=== PATIENT | female | born 1955 | race Two or more races ===

== ENCOUNTER → 2024-07-05 | Outpatient (CLI) | payer MEDICAID ==
[~2024-07-05] MED LIST: AMIT-400 PO; BUPR-413 PO; DULO30CA2 PO; ERYT-160 PO; GABA-1250 PO; LIS10T PO; LORA-483 PO; OMEP20CA74 PO; PROP80CA40 PO; SIMV10TA20 PO
[2024-07-05 06:43] LABS: Urine Bacteria None Seen /hpf (None Seen)
[2024-07-05 07:00] LABS: Urine Blood Negative /uL (Negative); Urine Clarity Clear (Clear); Urine Color Yellow (Yellow); Urine Protein, UAD Negative (Negative); Urine Specific Gravity 1.026 (1.001-1.035); Urine Squamous Epithelial Cell FEW /hpf (<5); Urine Urobilinogen Normal (Negative); Urine WBC 25 /HPF (0-5); Urine WBC Clumps PRESENT /hpf (None Seen); Urine pH 5.5 (5.0-9.0)
[2024-07-05 07:15] LABS: Basophils # (auto) 0 10 ^3/uL (0-0.2); Basophils % (auto) 0.7 % (0.0-2.0); Eosinophils # (auto) 0.4 10 ^3/uL (0-0.8); Eosinophils % (auto) 6.3 % (0.0-7.0); Hematocrit 37.8 % (36.0-46.0); Hemoglobin 12.7 g/dL (12.2-16.2); Lymphocytes # (auto) 2.5 10 ^3/uL (0.4-5.4); Lymphocytes % (auto) 45.8 % (10.0-50.0); Mean Corpuscular Hemoglobin 28.3 pg (28.0-32.0); Mean Corpuscular Hgb Conc. 33.5 g/dL (32.0-36.0); Mean Corpuscular Volume 84.5 fL (80.0-100.0); Monocytes # (auto) 0.3 10 ^3/uL (0-1.3); Monocytes % (auto) 5.8 % (0.0-12.0); Neutrophils # (auto) 2.3 10 ^3/uL (1.6-8.6); Neutrophils % (auto) 41.4 % (37.0-80.0); Platelet Count (auto) 254 10^3/uL (140-450); Red Blood Cells 4.48 10^6/uL (4.0-5.20); Red Cell Distribution Width 14.6 % (11.8-14.3); White Blood Cell 5.6 10^3/uL (4.4-10.8)
[2024-07-05 07:33] LABS: Alanine Aminotransferase 16 U/L (7-40); Albumin 4.4 g/dL (3.2-4.8); Alkaline Phosphatase 113 U/L (46-116); Anion Gap 8 (5-15); Aspartate Aminotransferase 15 U/L (13-40); Calcium 9.8 mg/dL (8.7-10.4); Carbon Dioxide 26 mmol/L (20-31); Chloride 104 mmol/L (98-107); Potassium 4.8 mmol/L (3.5-5.1); Sodium 138 mmol/L (136-145); Total Protein 7.1 g/dL (5.7-8.2); Uric Acid 4.9 mg/dL (3.1-7.8)
[2024-07-05 07:37] LABS: Bilirubin, Total 0.2 mg/dL (0.2-1.0); Blood Urea Nitrogen 25 mg/dL (9-23); Glucose 167 mg/dL (74-106)
[2024-07-05 08:04] LABS: Cholesterol 171 mg/dL (< 200)
[2024-07-05 08:05] LABS: HDL Cholesterol 50 mg/dL (40-59)
[2024-07-05 08:07] LABS: LDL Cholesterol 102 mg/dL (< 100); Triglycerides 157 mg/dL (< 150)
== END | disposition home or self-care (01) ==
LOC: LAB 06:26
PROVIDERS: ATTEND Family Medicine
DX: E11.65 Type 2 diabetes mellitus with hyperglycemia (principal); Z12.11 Encounter for screening for malignant neoplasm of colon; M25.50 Pain in unspecified joint; E03.9 Hypothyroidism, unspecified; E78.5 Hyperlipidemia, unspecified; G20.C Parkinsonism, unspecified; Z79.899 Other long term (current) drug therapy
CPT/HCPCS: 36415; 80053; 80061; 81001; 82043; 82306; 83036; 84443; 84550; 85025

== ENCOUNTER → 2024-10-29 | Outpatient (CLI) | payer MEDICAID ==
[2024-10-29 11:52] LABS: Alanine Aminotransferase 13 U/L (7-40); Albumin 5.0 g/dL (3.2-4.8); Alkaline Phosphatase 110 U/L (46-116); Anion Gap 9 (5-15); BUN/Creatinine Ratio 20.6 (10.0-20.0); Blood Urea Nitrogen 21 mg/dL (9-23); Calcium 10.1 mg/dL (8.7-10.4); Carbon Dioxide 27 mmol/L (20-31); Chloride 101 mmol/L (98-107); Cholesterol 159 mg/dL (< 200); Glucose 186 mg/dL (74-106); Potassium 4.9 mmol/L (3.5-5.1); Sodium 137 mmol/L (136-145); Total Protein 7.7 g/dL (5.7-8.2); Triglycerides 86 mg/dL (< 150)
[2024-10-29 11:53] LABS: Bilirubin, Total 0.3 mg/dL (0.2-1.0); HDL Cholesterol 63 mg/dL (40-59)
[2024-10-29 12:29] LABS: Microalb/Creat Ratio, Urine 4.00
== END | disposition home or self-care (01) ==
LOC: LAB 11:08
PROVIDERS: ATTEND Family Medicine
DX: I12.9 Hypertensive chronic kidney disease with stage 1 through stage 4 chronic kidney disease, or unspecified chronic kidney disease (principal); E11.22 Type 2 diabetes mellitus with diabetic chronic kidney disease; E78.2 Mixed hyperlipidemia; E03.9 Hypothyroidism, unspecified; E11.65 Type 2 diabetes mellitus with hyperglycemia; N18.9 Chronic kidney disease, unspecified; Z79.4 Long term (current) use of insulin
CPT/HCPCS: 36415; 80053; 80061; 82043; 82570; 83036; 84443

== ENCOUNTER 2024-12-29 01:31 | Inpatient (IN) | payer OTHER, MEDICAID ==
[~2024-12-29] VITALS: Ht 167.6 cm; Wt 70.5 kg
--- NOTE | 2024-12-29 02:17 | ED.PDOC ---
Altered Mental Status HPI Comments 69-year-old female who came to ER via EMS for altered level of consciousness. Patient transferred from here from [facility], apparently patient was seen him unresponsive by family members at home, so he was brought to [facility]. Patient is on hospice but on full code. Recently had antibiotics for an ear infection. Multiple diagnostic this were done at [facility], and was sent here for further evaluation and management Chief Complaint: ALOC Time Seen by MD: 02:16 Reviewed Notes: Veneer Stock Layer Notes Allergies: Coded Allergies: Amoxicillin (Verified Allergy, Unknown, 12/29/24) Ciprofloxacin (Verified Allergy, Unknown, 12/29/24) Penicillins (Verified Allergy, Unknown, 12/29/24) Home Meds Reported Medications Simvastatin (Simvastatin) 10 Mg Tab, 1 TAB PO QPM, #30 TAB 5 Refills 06/22/15 Loratadine (CLARITIN TABLET) 10 Mg Tb, 10 MG PO DAILY 06/22/15 Bupropion Hcl (WELLBUTRIN TABLET) 100 Mg Tb, 100 MG PO DAILY 06/22/15 Propranolol Hcl (Inderal La) 80 Mg Cap, 80 MG PO DAILY, CAP 06/22/15 Omeprazole (PRILOSEC) 20 Mg Cap, 20 MG PO DAILY, CAP 06/22/15 Lisinopril (ZESTRIL TABLET) 10 Mg Tb, 10 MG PO DAILY 06/22/15 Amitriptyline Hcl (ELAVIL) 10 Mg Tb, 75 MG PO BID 06/22/15 Erythromycin (ERYTHROMYCIN BASE) 250 Mg Tb, 500 MG PO TID 06/22/15 Duloxetine Hcl (CYMBALTA CAPSULE) 30 Mg Cp, 60 MG PO DAILY, CP 06/22/15 Gabapentin (Gabapentin) 300 Mg Cap, 300 MG PO TID for 30 Days, MG 06/22/15 Information Source: Emergency Med Personnel Mode of Arrival: EMS Severity: Unable to Care for Self, Unresponsive Timing: Hours Duration: Intermittent Quality: Decreased Alertness, Change in Behavior, Confusion History of: Diabetes Past Medical History PAST MEDICAL HISTORY: Arthritis, DM, High Lipids, HTN, UTI'S Surgical History: Pt Confused FAMILY AND CONSUMER SCIENCES PROFESSOR History: Pt Confused Family History Family History: Pt Confused Social History Smoker: Pt Confused Alcohol: Pt Confused Drugs: Pt Confused Lives In: Home Unable to Obtain due to: Altered Mental Status Physical Exam General Appearance: No Apparent Distress, Normal HEENT: Normal ENT Inspection, Pharynx Normal, TMs Normal Neck: Full Range of Motion, Non-Tender, Normal, Normal Inspection Respiratory: Chest Non-Tender, Lungs Clear, No Accessory Muscle Use, No Respiratory Distress, Normal Breath Sounds Cardiovascular: No Edema, No JVD, No Murmur, No Gallop, Normal Peripheral Pulses, Regular Rate/Rhythm Breast Exam: Deferred Gastrointestinal: No Organomegaly, Non Tender, No Pulsatile Mass, Normal Bowel Sounds, Soft Genitalia: Deferred Pelvic: Deferred Rectal: Deferred Extremities: No calf tenderness, Normal capillary refill, Normal inspection, Normal range of motion, Non-tender, No pedal edema Musculoskeletal : Apperance: Normal Neurologic: Alert, hydrodynamics teacher II-XII nml as Tested, No Motor Deficits, Normal Affect, Normal Mood, No Sensory Deficits Cerebellar Function: Normal Reflexes: Normal Skin: Dry, Normal Color, Warm Lymphatic: No Adenopathy Was a procedure done? Was a procedure done?: No Differential Diagnosis (ALOC) Differential Diagnosis: DKA, Encephalopathy, Sepsis, Seizure, CVA, Drug Overdose X-Ray, Labs, Meds, VS Vital Signs Date Time Temp Pulse Resp B/P (MAP) Pulse Ox O2 Delivery O2 Flow Rate FiO2 12/29/24 02:56 97.8 67 12 109/53 (71) 95 97.8 12/29/24 01:31 98.6 68 12 119/66 95 98.6 Lab Test 12/29/24 03:55 12/29/24 02:44 Range/Units Troponin I High Sensitivity Pending < 3 L </=34 ng/L White Blood Count 9.2 4.4-10.8 10^3/uL Red Blood Count 4.29 4.0-5.20 10^6/uL Hemoglobin 12.0 L 12.2-16.2 g/dL Hematocrit 37.4 36.0-46.0 % Mean Corpuscular Volume 87.1 80.0-100.0 fL Mean Corpuscular Hemoglobin 28.0 28.0-32.0 pg Mean Corpuscular Hemoglobin Concent 32.1 32.0-36.0 g/dL Red Cell Distribution Width 14.1 11.8-14.3 % Platelet Count 199 140-450 10^3/uL Mean Platelet Volume 7.8 6.9-10.8 fL Neutrophils (%) (Auto) 59.6 37.0-80.0 % Lymphocytes (%) (Auto) 31.8 10.0-50.0 % Monocytes (%) (Auto) 5.5 0.0-12.0 % Eosinophils (%) (Auto) 2.5 0.0-7.0 % Basophils (%) (Auto) 0.6 0.0-2.0 % Neutrophils # (Auto) 5.5 1.6-8.6 10 ^3/uL Lymphocytes # (Auto) 2.9 0.4-5.4 10 ^3/uL Monocytes # (Auto) 0.5 0-1.3 10 ^3/uL Eosinophils # (Auto) 0.2 0-0.8 10 ^3/uL Basophils # (Auto) 0.1 0-0.2 10 ^3/uL Nucleated Red Blood Cells 0.0 % Prothrombin Time 10.5 9.3-11.8 sec Prothrombin Time INR 0.99 0.9-1.15 Activated Partial Thromboplast Time 22.2 L 24.5-34.5 SEC Sodium Level 137 136-145 mmol/L Potassium Level 4.6 3.5-5.1 mmol/L Chloride Level 105 98-107 mmol/L Carbon Dioxide Level 22 20-31 mmol/L Anion Gap 10 5-15 Blood Urea Nitrogen 19 9-23 mg/dL Creatinine 1.07 H 0.550-1.02 mg/dL Glomerular Filtration Rate Calc 56 >90 mL/min BUN/Creatinine Ratio 17.8 10.0-20.0 Serum Glucose 163 H 74-106 mg/dL Lactic Acid Level 1.4 0.4-2.0 mmol/L Calcium Level 8.8 8.7-10.4 mg/dL Magnesium Level 2.1 1.6-2.6 mg/dL Total Bilirubin 0.4 0.2-1.0 mg/dL Aspartate Amino Transferase (AST) 29 13-40 U/L Alanine Aminotransferase (ALT) 20 7-40 U/L Alkaline Phosphatase 115 46-116 U/L B-Type Natriuretic Peptide 4.10 0-100 pg/mL Total Protein 6.9 5.7-8.2 g/dL Albumin 4.0 3.2-4.8 g/dL Current Medications Medications (Trade) Dose Ordered Sig/Robbin Route Start Time Stop Time Status Last Admin Sodium Chloride 1,000 ml @ 1,000 mls/hr Q1H ONCE IVB 12/29/24 02:00 12/29/24 02:59 DC 12/29/24 03:28 Time of 1ST Reevaluation: 01:59 Reevaluation 1ST: Unchanged Patient Education/Counseling: Other (Altered and confused) Family Education/Counseling: No Family Present SEPSIS Sepsis Screen Physician Orders Troponin-I Hs (12/29/24 03:00) Urinalysis (12/29/24 01:54) Blood Culture (12/29/24 01:54) Electrocardigram (12/29/24 01:54) Troponin-I Hs (12/29/24 04:54) Type And Screen (12/29/24 01:54) Pheresis Platelets (12/29/24 01:58) Zosyn Extended Infusion (12/29/24 04:15) Vital Signs Date Time Temp Pulse Resp B/P (MAP) Pulse Ox O2 Delivery O2 Flow Rate FiO2 12/29/24 02:56 97.8 67 12 109/53 (71) 95 97.8 12/29/24 01:31 98.6 68 12 119/66 95 98.6 Laboratory Tests Test 12/29/24 02:44 Lactic Acid Level 1.4 mmol/L (0.4-2.0) White Blood Count 9.2 10^3/uL (4.4-10.8) Medications Medications Dose Ordered Sig/Robbin Route Start Time Stop Time Status Last Admin Dose Admin Sodium Chloride 1,000 ml @ 1,000 mls/hr Q1H ONCE IVB 12/29/24 02:00 12/29/24 02:59 DC 12/29/24 03:28 Departure 1 Departure Time of Disposition: 04:13 Impression: Primary Impression: Altered mental status Additional Impression: Metabolic encephalopathy Disposition: ADMITTED INPATIENT Admit to: Med Surg Condition: Guarded Comments 69-year-old female transferred from [facility] with altered mental status for the last day. A CT of the head was performed at [facility] and showed no acute abnormality. A chest x-ray was performed at [facility] and showed some prominence of the central pulmonary vasculature and some linear perihilar opacities that may represent atelectasis or scarring. Lab results reviewed. Patient will need admission for metabolic encephalopathy and supportive care and further workup. Critical Care Note Critical Care Time?: Yes (35 min-critical care time only) Critical care comment: Total critical care time: Approximately 36 minutes Due to a high probability of clinically significant, life threatening deterioration, the patient required my highest level of preparedness to intervene emergently and I personally spent this critical care time directly and personally managing the patient. This critical care time included obtaining a history; examining the patient; pulse oximetry; ordering and review of studies; arranging urgent treatment with development of a management plan; evaluation of patient's response to treatment; frequent reassessment; and, discussions with other providers. This critical care time was performed to assess and manage the high probability of imminent, life-threatening deterioration that could result in multi-organ failure. It was exclusive of separately billable procedures and treating other patients. Stability Stability form required: No Heart Score Heart Score: Heart Score Response (Comments) Value History N/A 0 EKG N/A 0 Age N/A 0 Risk Factors N/A 0 Troponin N/A 0 Total 0 I personally scribed for ERIC ALEJANDRE MD ([email or web address]) on 12/29/24 at 02:17. Electronically submitted by Cleve Clements ([email or web address]). ERIC ALEJANDRE MD Dec 29, 2024 02:17
[2024-12-29 03:13] LABS: Hematocrit 37.4 % (36.0-46.0); Hemoglobin 12.0 g/dL (12.2-16.2); Mean Corpuscular Hemoglobin 28.0 pg (28.0-32.0); Mean Corpuscular Volume 87.1 fL (80.0-100.0); Nucleated Red Blood Cells % 0.0 %
[2024-12-29 03:27] LABS: INR 0.99 (0.9-1.15); Partial Thromboplastin Time 22.2 SEC (24.5-34.5); Prothrombin Time 10.5 sec (9.3-11.8)
[2024-12-29] MEDS: SODIUM CHLORIDE 0.9% 1,000 ML IVB ONE (03:28)
[2024-12-29 03:36] LABS: Alanine Aminotransferase 20 U/L (7-40); Albumin 4.0 g/dL (3.2-4.8); Alkaline Phosphatase 115 U/L (46-116); Anion Gap 10 (5-15); BUN/Creatinine Ratio 17.8 (10.0-20.0); Blood Urea Nitrogen 19 mg/dL (9-23); Calcium 8.8 mg/dL (8.7-10.4); Carbon Dioxide 22 mmol/L (20-31); Chloride 105 mmol/L (98-107); Glucose 163 mg/dL (74-106); Magnesium 2.1 mg/dL (1.6-2.6); Potassium 4.6 mmol/L (3.5-5.1); Sodium 137 mmol/L (136-145); Total Protein 6.9 g/dL (5.7-8.2)
[2024-12-29 03:37] LABS: Bilirubin, Total 0.4 mg/dL (0.2-1.0)
[2024-12-29] MEDS: PIPERACILLIN-TAZOB 3.375GM 100 ML IV ONE (04:28)
[2024-12-29] MEDS ORDERED: MORPHINE SULFATE INJ 2 MG/ml SYRG IV PRN (04:30)
[2024-12-29] MEDS ORDERED: ONDANSETRON HCL 4 MG/2 ML VIAL IV PRN (04:30)
[2024-12-29] MEDS ORDERED: NITROGLYCERIN 0.4 MG SL TAB SL PRN (04:30)
[2024-12-29] MEDS: SODIUM CHLORIDE 0.9% 1,000 ML IV SCH (04:30)
[2024-12-29] MEDS ORDERED: ACETAMINOPHEN 325 MG TAB PO PRN (04:30)
[2024-12-29] MEDS ORDERED: DOCUSATE SOD 100 MG CAP PO PRN (04:30)
--- NOTE | 2024-12-29 04:32 | DVHHP2 ---
History of Present Illness Reason for Visit: Metabolic encephalopathy History of Present Illness The patient is a 69-year-old female with past medical history of diabetes mellitus, arthritis, hyperlipidemia, hypertension, and UTIs who presented to [facility] ED for evaluation of altered level of consciousness. As reported, patient was transferred from [facility] for upper level of care. Patient was noted by family member unresponsive and EMS were called. Patient is on hospice but on full code. Patient was seen and evaluated in the ED with respiratory distress, laboratory data shows WBC 9.2, platelets 199, sodium 137, potassium 4.6, BUN 19, creatinine 1.07, GFR 56, glucose 163, calcium 8.8, troponin three, BNP 4.10, blood pressure 109/53, heart rate 67, temperature 97.8 F, O2 saturation 95% on oxygen. Chest x-ray showed normal heart size appearance, lungs are clear without focal airspace opacity, effusion, or pneumothorax. Please see medication orders section in the computer. On my assessment, patient denied chest pain, no headache, dizziness, diaphoresis, currently on oxygen, no diarrhea, nausea, vomiting, fever, no chills. Patient was admitted for further evaluation and medical management. Past Medical History Arthritis, DM, High Lipids, HTN, UTI'S Past Surgical History Denies all surgeries Family History Reviewed, noncontributory to the management of this case. Past Social History The patient lives at home, denies smoking, alcohol or illicit drugs abuse. Review of Systems Constitutional: Yes: Weakness; No: Fever, Chills, Sweats, Malaise, Other Eyes: No: Pain, Vision change, Conjunctivae inflammation, Eyelid inflammation, Other, Redness ENT: No: Ear pain, Ear discharge, Nose pain, Nose discharge, Nose congestion, Mouth pain, Mouth swelling, Throat pain, Throat swelling, Other Respiratory: Shortness of breath; No: Cough, Dry, SOB with excertion, Wheezing, Hemoptysis, Pleuritic Pain, Sputum, Wheezing, Other Cardiovascular: No: Chest Pain, Palpitations, Orthopnea, Paroxysmal Noc. Dyspnea, Edema, Lt Headedness, Other Gastrointestinal: No: Nausea, Vomiting, Abdominal Pain, Diarrhea, Constipation, Melena, Hematochezia, Other Genitourinary: No Dysuria, No Frequency, No Incontinence, No Hematuria, No Retention, No Other Musculoskeletal: No: other, neck pain, shoulder pain, arm pain, back pain, hand pain, leg pain, foot pain Skin: No: Rash, Lesions, Jaundice, Bruising, Other Neurological: Confusion, Other (Altered level of consciousness); No: Weakness, Numbness, Incoordination, Change in speech, Seizures Allergies: Coded Allergies: Amoxicillin (Verified Allergy, Unknown, 12/29/24) Ciprofloxacin (Verified Allergy, Unknown, 12/29/24) Penicillins (Verified Allergy, Unknown, 12/29/24) Exam Vital Signs Vital Signs Date Time Temp Pulse Resp B/P (MAP) Pulse Ox O2 Delivery O2 Flow Rate FiO2 12/29/24 02:56 97.8 67 12 109/53 (71) 95 97.8 12/29/24 02:56 Nasal Cannula* 2 28 General Appearance: Alert, Cooperative, No acute distress, Other (Oriented x2) HEENT: Atraumatic, PERRLA, EOMI, Mucous membr. moist/pink Respiratory: Normal air movement, Other (Currently on oxygen) Cardiovascular: Regular rate, Normal S1, Normal S2, No murmurs Abdominal: Normal bowel sounds, Soft, No tenderness, No hepatospenomegaly, No masses Extremities: No clubbing, No cyanosis, No edema, Normal pulses, No tenderness/swelling Skin: No rashes, No breakdown, No significant lesion Neuro: Normal speech, Normal tone, Sensation intact, Cranial nerves 3-12 NL, Reflexes 2+, Other (Generalized weakness) Psych/Mental Status: Mental status NL, Mood NL Labs/Xrays Labs Test 12/29/24 03:55 12/29/24 02:44 Range/Units White Blood Count 9.2 4.4-10.8 10^3/uL Red Blood Count 4.29 4.0-5.20 10^6/uL Hemoglobin 12.0 L 12.2-16.2 g/dL Hematocrit 37.4 36.0-46.0 % Mean Corpuscular Volume 87.1 80.0-100.0 fL Mean Corpuscular Hemoglobin 28.0 28.0-32.0 pg Mean Corpuscular Hemoglobin Concent 32.1 32.0-36.0 g/dL Red Cell Distribution Width 14.1 11.8-14.3 % Platelet Count 199 140-450 10^3/uL Mean Platelet Volume 7.8 6.9-10.8 fL Neutrophils (%) (Auto) 59.6 37.0-80.0 % Lymphocytes (%) (Auto) 31.8 10.0-50.0 % Monocytes (%) (Auto) 5.5 0.0-12.0 % Eosinophils (%) (Auto) 2.5 0.0-7.0 % Basophils (%) (Auto) 0.6 0.0-2.0 % Neutrophils # (Auto) 5.5 1.6-8.6 10 ^3/uL Lymphocytes # (Auto) 2.9 0.4-5.4 10 ^3/uL Monocytes # (Auto) 0.5 0-1.3 10 ^3/uL Eosinophils # (Auto) 0.2 0-0.8 10 ^3/uL Basophils # (Auto) 0.1 0-0.2 10 ^3/uL Nucleated Red Blood Cells 0.0 % Prothrombin Time 10.5 9.3-11.8 sec Prothrombin Time INR 0.99 0.9-1.15 Activated Partial Thromboplast Time 22.2 L 24.5-34.5 SEC Sodium Level 137 136-145 mmol/L Potassium Level 4.6 3.5-5.1 mmol/L Chloride Level 105 98-107 mmol/L Carbon Dioxide Level 22 20-31 mmol/L Anion Gap 10 5-15 Blood Urea Nitrogen 19 9-23 mg/dL Creatinine 1.07 H 0.550-1.02 mg/dL Glomerular Filtration Rate Calc 56 >90 mL/min BUN/Creatinine Ratio 17.8 10.0-20.0 Serum Glucose 163 H 74-106 mg/dL Lactic Acid Level 1.4 0.4-2.0 mmol/L Calcium Level 8.8 8.7-10.4 mg/dL Magnesium Level 2.1 1.6-2.6 mg/dL Total Bilirubin 0.4 0.2-1.0 mg/dL Aspartate Amino Transferase (AST) 29 13-40 U/L Alanine Aminotransferase (ALT) 20 7-40 U/L Alkaline Phosphatase 115 46-116 U/L B-Type Natriuretic Peptide 4.10 0-100 pg/mL Total Protein 6.9 5.7-8.2 g/dL Albumin 4.0 3.2-4.8 g/dL PATIENT: URBAN COLINDRESACCT: [id number] UNIT: [id number] : 1955 LOC: OVERFLOW ROOM / BED: [address] [place] [address] / A AGE / SEX: 69 / F ADM STATUS: ADM IN SERVICE 0424 ORDERING PHYSICIAN: ALISHA CARDOZA DNP PROCEDURE(s): CXRP - CHEST PORTABLE REASON: Shortness of breaths ORDER NUMBER(s): [id number], ACCESSION NUMBER(s): [id number] CHEST RADIOGRAPH Indication: Shortness of breaths Technique: Single frontal view of the chest was obtained Comparison: None IMPRESSION: Heart appears normal in size. The lungs appear clear without focal airspace opacity, effusion, or pneumothorax SEPSIS Sepsis Screen Date sepsis recognized/suspect: Dec 29, 2024 Time Sepsis recognized/suspect: 255 Recent Procedure: No On Antibiotic Therapy: No Respiratory Rate >20: No Heart Rate >90: No Temp<36 C (96.8 F) or >38.3 C: No SBP <90 or MAP <65 mmHG: No New Acute Mental Status Change: No Is the patient on CPAP, BIPAP,: No Physician Orders Troponin-I Hs (12/29/24 03:00) Urinalysis (12/29/24 01:54) Blood Culture (12/29/24 01:54) Electrocardigram (12/29/24 01:54) Troponin-I Hs (12/29/24 04:54) Type And Screen (12/29/24 01:54) Piperacillin-Tazob 3.375gm (Zosyn 3.375g (12/29/24 04:15) Duloxetine Hcl Capsule (Cymbalta Capsule (12/29/24 10:00) Gabapentin Capsule (Neurontin Capsule) (12/29/24 06:00) Famotidine Injection (Pepcid Injection) (12/29/24 10:00) Atorvastatin (Lipitor) (12/29/24 22:00) 1 View Decubitus Chest Xray (12/29/24 04:24) Admit (12/29/24 04:24) Allergies (12/29/24 04:24) Code Status (12/29/24 04:24) 0.9% Ns 1000 Ml (12/29/24 04:30) Oxygen Per Hour (12/29/24 04:24) Hydrocodone-Acet 5/325mg Tab ([place] 5/32 (12/29/24 04:30) Ondansetron Hcl (Zofran) (12/29/24 04:30) Docusate Sodium Capsule (Colace Capsule) (12/29/24 04:30) Fall Risk Precautions In Place QSHIFT (12/29/24 04:24) Complete Blood Count (12/30/24 04:00) Comprehensive Metabolic Panel (12/30/24 04:00) Cardiac Diet-2gna,Lofat,Lochol (12/29/24 Breakfast) Condition: Serious (12/29/24 04:24) Acetaminophen Tablet (Tylenol Tablet) (12/29/24 04:30) Maintain Bed Rest (12/29/24 04:24) Sequential Compression Device (12/29/24 ) Nitroglycerin Sublingual (Ntrostat Subli (12/29/24 04:30) Morphine Sulfate Injection (12/29/24 04:30) Stat Ekg For Chest Pain (12/29/24 04:24) Notify Md Of Changes From Base (12/29/24 04:24) Producer Arborist Manager For 24 Hours (12/29/24 04:24) Emergency Dysrhythmia Protocol (12/29/24 04:24) Rhythm Strips Once Every Shift (12/29/24 04:24) Oxygen By Nasal Cannula (12/29/24 04:24) Vital Signs Date Time Temp Pulse Resp B/P (MAP) Pulse Ox O2 Delivery O2 Flow Rate FiO2 12/29/24 02:56 97.8 67 12 109/53 (71) 95 97.8 12/29/24 02:56 Nasal Cannula* 2 28 12/29/24 01:31 98.6 68 12 119/66 95 98.6 Laboratory Tests Test 12/29/24 02:44 Lactic Acid Level 1.4 mmol/L (0.4-2.0) White Blood Count 9.2 10^3/uL (4.4-10.8) Medications Medications Dose Ordered Sig/Robbin Route Start Time Stop Time Status Last Admin Dose Admin Piperacillin Sod/ Tazobactam Sod 100 ml @ 100 mls/hr ONCE ONCE IV 12/29/24 04:15 12/29/24 05:14 12/29/24 04:28 100 MLS/HR Sodium Chloride 1,000 ml @ 1,000 mls/hr Q1H ONCE IVB 12/29/24 02:00 12/29/24 02:59 DC 12/29/24 03:28 1,000 MLS/HR Assessment/Plan Assessment/Plan Metabolic encephalopathy Hypotension Altered mental status Acute respiratory distress Generalized weakness Diabetes mellitus with hyperglycemia Plan 1. Admit to telemetry unit 2. Breathing treatment 3. Pain control management 4. Management of fluids and electrolytes 5. Consultation for hospitalist 6. Diagnostic tests chest x-ray 7. DVT prophylaxis-on aspirin 8. Repeat labs CBC, CMP in a.m. 9. Continue with current medical management 10. Treatment plan discussed with patient and RN. Patient verbalized understanding. Plan discussed with: Patient, Other (RN) My Orders Orders - ALISHA CARDOZA DNP Procedure Category Date Status Time Duloxetine Hcl PHA 12/29/24 Verified Capsule (Cymbalta 10:00 Gabapentin Capsule PHA 12/29/24 Verified (Neurontin Capsule) 06:00 Famotidine Injection PHA 12/29/24 Verified (Pepcid Injection) 10:00 Atorvastatin (Lipitor) PHA 12/29/24 Verified 22:00 1 View Decubitus XY 12/29/24 Verified Chest Xray 04:24 Admit ADMIT 12/29/24 Verified 04:24 Allergies DAV 12/29/24 Verified 04:24 Code Status CODE 12/29/24 Verified 04:24 0.9% Ns 1000 Ml PHA 12/29/24 Verified 04:30 Oxygen Per Hour RT 12/29/24 Verified 04:24 Hydrocodone-Acet PHA 12/29/24 Verified 5/325mg Tab ([place] 04:30 Ondansetron Hcl PHA 12/29/24 Verified (Zofran) 04:30 Docusate Sodium PHA 12/29/24 Verified Capsule (Colace 04:30 Fall Risk Precautions DAV 12/29/[address] 04:24 Complete Blood Count LAB 12/30/24 Verified 04:00 Comprehensive LAB 12/30/24 Verified Metabolic Panel 04:00 Cardiac DIET 12/29/24 Verified Diet-2gna,Lofat,Lochol Breakfast Condition: Serious DAV 12/29/24 Verified 04:24 Acetaminophen Tablet PHA 12/29/24 Verified (Tylenol Tablet) 04:30 Maintain Bed Rest DAV 12/29/24 Verified 04:24 Sequential [facility] 12/29/24 Verified Compression Device Nitroglycerin [facility] 12/29/24 Verified Sublingual (Ntrostat 04:30 Morphine Sulfate [facility] 12/29/24 Verified Injection 04:30 Stat Ekg For Chest [facility] 12/29/24 Verified Pain 04:24 Notify Md Of Changes [facility] 12/29/24 Verified From Base 04:24 Producer Arborist Manager For [facility] 12/29/24 Verified 24 Hours 04:24 Emergency Dysrhythmia [facility] 12/29/24 Verified Protocol 04:24 Rhythm Strips Once [facility] 12/29/24 Verified Every Shift 04:24 Oxygen By Nasal 12/29/24 Verified Cannula 04:24 Problem List: (1) Metabolic encephalopathy (2) Hypotension (3) Altered mental status (4) Acute respiratory distress (5) Generalized weakness (6) Diabetes mellitus with hyperglycemia Date of Service: Dec 29, 2024 Billing Provider: ALISHA CARDOZA DNP Common Visit Codes: [id number] INP/OBS CARE (HIGH) ALISHA CARDOZA DNP Dec 29, 2024 04:32
[2024-12-29] MEDS ORDERED: DEXTROSE (50%) 50ML SYRG IV PRN (05:00)
--- NOTE | 2024-12-29 05:25 | DVH ---
CHEST RADIOGRAPH Indication: Shortness of breaths Technique: Single frontal view of the chest was obtained Comparison: None IMPRESSION: Heart appears normal in size. The lungs appear clear without focal airspace opacity, effusion, or pn eumothorax
[2024-12-29] MEDS: GABAPENTIN 300 MG CAP PO SCH (06:51)
[2024-12-29] MEDS: InsuLIN REG 1unit/0.01ml Soln (100units/ml) SC SCH ×2 (06:53→22:21)
[2024-12-29] MEDS: MIDODRINE HCL 10 MG TAB PO ONE (06:55)
[2024-12-29 06:59] LABS: Urine Protein, UAD Negative (Negative); Urine WBC Clumps PRESENT /hpf (None Seen)
[2024-12-29] MEDS: ACCU-CHEK COMFORT CURVE STRIP VI SCH (07:05)
[2024-12-29] MEDS: FAMOTIDINE (10MG/ML) 2ML VL IV SCH (08:34)
[2024-12-29] MEDS: HYDROcodone-ACET 5/325MG TAB PO PRN (08:35)
[2024-12-29] MEDS: MIDODRINE HCL 10 MG TAB PO SCH (12:13)
--- NOTE | 2024-12-29 14:31 | DVHPN2 ---
Reviewed: Care Plan, H&P, Labs, Medications, Previous Orders, Radiology Changes from previous H/P or p: No Changes Eyes: No Pain, No Vision change, No Conjunctivae inflammation, No Eyelid inflammation, No Other, No Redness ENT: No Ear pain, No Ear discharge, No Nose pain, No Nose discharge, No Nose congestion, No Mouth pain, No Mouth swelling, No Throat pain, No Throat swelling, No Other Cardiovascular: No Chest Pain, No Palpitations, No Orthopnea, No Paroxysmal Noc. Dyspnea, No Edema, No Lt Headedness, No Other Respiratory: No Cough, No Dry; Shortness of breath; No SOB with excertion, No Wheezing, No Hemoptysis, No Pleuritic Pain, No Sputum, No Other Gastrointestinal: No Nausea, No Vomiting, No Abdominal Pain, No Diarrhea, No Constipation, No Melena, No Hematochezia, No Other Genitourinary: No Dysuria, No Frequency, No Incontinence, No Hematuria, No Retention, No Other Musculoskeletal: No other, No neck pain, No shoulder pain, No arm pain, No back pain, No hand pain, No leg pain, No foot pain Skin: No Rash, No Lesions, No Jaundice, No Bruising, No Other Objective Vitals Vital Signs Date Time Temp Pulse Resp B/P (MAP) Pulse Ox O2 Delivery O2 Flow Rate FiO2 12/29/24 14:17 76 14 139/64 (89) 96 12/29/24 12:00 98.6 98.6 12/29/24 09:01 Nasal Cannula* 2 28 Intake/Output Intake and Output 12/29/24 07:00 Intake Total 1220 ml Balance 1220 ml Intake IV Total 1220 ml Medications Current Medications Medications Dose Ordered Sig/Robbin Route Start Time Stop Time Status Last Admin Dose Admin Duloxetine HCl 30 mg DAILY PO 12/29/24 10:00 12/29/24 08:34 30 MG Gabapentin 300 mg TID PO 12/29/24 06:00 12/29/24 14:14 300 MG Famotidine 20 mg DAILY IV 12/29/24 10:00 12/29/24 08:34 20 MG Atorvastatin Calcium 10 mg HS PO 12/29/24 22:00 Sodium Chloride 1,000 ml @ 60 mls/hr [id number] IV 12/29/24 04:30 12/29/24 04:30 60 MLS/HR Acetaminophen/ Hydrocodone Bitart 1 tab Q4HP PRN PO 12/29/24 04:30 12/29/24 08:35 1 TAB Ondansetron HCl 4 mg Q4HP PRN IV 12/29/24 04:30 Docusate Sodium 100 mg BIDPRN PRN PO 12/29/24 04:30 Acetaminophen 650 mg Q6HP PRN PO 12/29/24 04:30 Nitroglycerin 0.4 mg Q5MINP PRN SL 12/29/24 04:30 Morphine Sulfate 2 mg Q30M PRN IV 12/29/24 04:30 Diagnostic Test (Pha) 1 strip ACHS 12/29/24 07:00 12/29/24 11:49 1 STRIP Insulin Human Regular HS SC 12/29/24 22:00 Insulin Human Regular AC SC 12/29/24 07:00 12/29/24 06:53 2 UNITS Dextrose 50 ml UD PRN IV 12/29/24 05:00 Midodrine 10 mg TID@0600,1200,1800 PO 12/29/24 12:00 12/29/24 12:13 10 MG Aspirin 81 mg DAILY PO 12/29/24 10:00 12/29/24 08:36 81 MG Laboratory Results Laboratory Tests 12/29/24 02:44 Chemistry Test 12/29/24 02:44 Albumin 4.0 g/dL (3.2-4.8) Calcium Level 8.8 mg/dL (8.7-10.4) Magnesium Level 2.1 mg/dL (1.6-2.6) Total Protein 6.9 g/dL (5.7-8.2) Coagulation Test 12/29/24 02:44 Prothrombin Time 10.5 sec (9.3-11.8) Prothrombin Time INR 0.99 (0.9-1.15) Activated Partial Thromboplast Time 22.2 SEC (24.5-34.5) L Cardiac Markers Test 12/29/24 02:44 B-Type Natriuretic Peptide 4.10 pg/mL (0-100) LFT Test 12/29/24 02:44 Alanine Aminotransferase (ALT) 20 U/L (7-40) Alkaline Phosphatase 115 U/L (46-116) Aspartate Amino Transferase (AST) 29 U/L (13-40) Total Bilirubin 0.4 mg/dL (0.2-1.0) Urinalysis Test 12/29/24 06:34 Urine Color Yellow (Yellow) Urine Clarity Ex.turbid (Clear) Urine pH 5.5 (5.0-9.0) Urine Specific [place] 1.009 (1.001-1.035) Urine Protein Negative (Negative) Urine Ketones Negative (Negative) Urine Blood Trace /uL (Negative) H Urine Nitrite Negative (Negative) Urine Bilirubin Negative (Negative) Urine Urobilinogen Normal mg/dL (Negative) Urine Leukocyte Esterase 3+ /uL (Negative) Urine RBC 3 /hpf (0 - 4) Urine WBC Clumps Present /hpf (None Seen) Urine Microscopic WBC 676 /HPF (0-5) H Urine Squamous Epithelial Cells Few /hpf (<5) Urine Bacteria Mod /hpf (None Seen) H Urine Hyaline Casts Few /lpf (0 - 2) Urine Glucose Normal mg/dL (Normal) Labs and/or images reviewed: Labs reviewed by me, Image(s) reviewed by me Assessment/Plan Assessment/Plan Septic shock with the elevated white count altered mental status secondary to urinary tract infection Acute urinary tract infection: Blood cultures urine cultures Rocephin Acute Metabolic encephalopathy Hypotension secondary to sepsis Altered mental status Acute respiratory distress Generalized weakness Diabetes mellitus with hyperglycemia: Insulin sliding scale Hypertension Hypercholesterolemia History of recurrent urinary tract infections Severe protein calorie malnutrition Patient is hospice revoked Time Spent 70 minutes Advanced care planning time 20 minutes Patient is full code Plan discussed with: Patient My Orders Orders - MARIZOL RODRIGUEZ MD Procedure Category Date Status Time Urine Bacterial NABEEL 12/29/24 Transmitted Culture 14:28 Date of Service: Dec 29, 2024 Billing Provider: MARIZOL RODRIGUEZ MD Common Visit Codes: [id number] CARE 30-74 MIN MARIZOL RODRIGUEZ MD Dec 29, 2024 14:31
[2024-12-29] MEDS: ATORVASTATIN 20 MG TAB PO SCH (22:20)
[2024-12-30] VITALS (9 sets, daily range): BP systolic 133–186; BP diastolic 60–95; PULSE 55–89; RESP 17–20; TEMP 97.5–98.8; O2SAT 97–99
[2024-12-30 07:31] LABS: Hematocrit 35.4 % (36.0-46.0); Hemoglobin 12.1 g/dL (12.2-16.2); Mean Corpuscular Hemoglobin 28.9 pg (28.0-32.0); Mean Corpuscular Volume 84.2 fL (80.0-100.0); Nucleated Red Blood Cells % 0.0 %
[2024-12-30 07:48] LABS: Alanine Aminotransferase 23 U/L (7-40); Albumin 4.1 g/dL (3.2-4.8); Anion Gap 10 (5-15); BUN/Creatinine Ratio 16.9 (10.0-20.0); Blood Urea Nitrogen 12 mg/dL (9-23); Calcium 9.2 mg/dL (8.7-10.4); Carbon Dioxide 23 mmol/L (20-31); Chloride 107 mmol/L (98-107); Potassium 3.9 mmol/L (3.5-5.1); Sodium 140 mmol/L (136-145); Total Protein 7.2 g/dL (5.7-8.2)
[2024-12-30 07:49] LABS: Alkaline Phosphatase 140 U/L (46-116); Bilirubin, Total 0.5 mg/dL (0.2-1.0); Glucose 147 mg/dL (74-106)
--- NOTE | 2024-12-30 13:16 | DVHPN2 ---
Reviewed: Care Plan, H&P, Labs, Medications, Previous Orders, Radiology Changes from previous H/P or p: No Changes Eyes: No Pain, No Vision change, No Conjunctivae inflammation, No Eyelid inflammation, No Other, No Redness ENT: No Ear pain, No Ear discharge, No Nose pain, No Nose discharge, No Nose congestion, No Mouth pain, No Mouth swelling, No Throat pain, No Throat swelling, No Other Cardiovascular: No Chest Pain, No Palpitations, No Orthopnea, No Paroxysmal Noc. Dyspnea, No Edema, No Lt Headedness, No Other Respiratory: No Cough, No Dry; Shortness of breath; No SOB with excertion, No Wheezing, No Hemoptysis, No Pleuritic Pain, No Sputum, No Other Gastrointestinal: No Nausea, No Vomiting, No Abdominal Pain, No Diarrhea, No Constipation, No Melena, No Hematochezia, No Other Genitourinary: No Dysuria, No Frequency, No Incontinence, No Hematuria, No Retention, No Other Musculoskeletal: No other, No neck pain, No shoulder pain, No arm pain, No back pain, No hand pain, No leg pain, No foot pain Skin: No Rash, No Lesions, No Jaundice, No Bruising, No Other Objective Vitals Vital Signs Date Time Temp Pulse Resp B/P (MAP) Pulse Ox O2 Delivery O2 Flow Rate FiO2 12/30/24 08:21 98.8 85 20 154/70 (98) 99 98.8 12/30/24 08:00 Nasal Cannula* 2 28 Intake/Output Intake and Output 12/30/24 06:59 Intake Total 630 ml Balance 630 ml Intake Oral 400 ml IV Total 230 ml Medications Current Medications Medications Dose Ordered Sig/Robbin Route Start Time Stop Time Status Last Admin Dose Admin Duloxetine HCl 30 mg DAILY PO 12/29/24 10:00 12/30/24 10:03 30 MG Gabapentin 300 mg TID PO 12/29/24 06:00 12/30/24 06:23 300 MG Famotidine 20 mg DAILY IV 12/29/24 10:00 12/30/24 10:03 20 MG Atorvastatin Calcium 10 mg HS PO 12/29/24 22:00 12/29/24 22:20 10 MG Sodium Chloride 1,000 ml @ 60 mls/hr [id number] IV 12/29/24 04:30 12/29/24 21:33 60 MLS/HR Acetaminophen/ Hydrocodone Bitart 1 tab Q4HP PRN PO 12/29/24 04:30 12/30/24 10:07 1 TAB Ondansetron HCl 4 mg Q4HP PRN IV 12/29/24 04:30 Docusate Sodium 100 mg BIDPRN PRN PO 12/29/24 04:30 Acetaminophen 650 mg Q6HP PRN PO 12/29/24 04:30 Nitroglycerin 0.4 mg Q5MINP PRN SL 12/29/24 04:30 Morphine Sulfate 2 mg Q30M PRN IV 12/29/24 04:30 Diagnostic Test (Pha) 1 strip ACHS 12/29/24 07:00 12/30/24 11:23 1 STRIP Insulin Human Regular HS SC 12/29/24 22:00 12/29/24 22:21 3 UNITS Insulin Human Regular AC SC 12/29/24 07:00 12/30/24 11:19 6 UNITS Dextrose 50 ml UD PRN IV 12/29/24 05:00 Midodrine 10 mg TID@0600,1200,1800 PO 12/29/24 12:00 12/30/24 12:29 10 MG Aspirin 81 mg DAILY PO 12/29/24 10:00 12/29/24 08:36 81 MG Ceftriaxone Sodium 50 ml @ 100 mls/hr DAILY@09 IV 12/30/24 09:00 12/30/24 10:03 100 MLS/HR Laboratory Results Laboratory Tests 12/30/24 06:02 Chemistry Test 12/30/24 06:02 Albumin 4.1 g/dL (3.2-4.8) Calcium Level 9.2 mg/dL (8.7-10.4) Total Protein 7.2 g/dL (5.7-8.2) LFT Test 12/30/24 06:02 Alanine Aminotransferase (ALT) 23 U/L (7-40) Alkaline Phosphatase 140 U/L (46-116) H Aspartate Amino Transferase (AST) 29 U/L (13-40) Total Bilirubin 0.5 mg/dL (0.2-1.0) Urinalysis Test 12/29/24 06:34 Urine Color Yellow (Yellow) Urine Clarity Ex.turbid (Clear) Urine pH 5.5 (5.0-9.0) Urine Specific [place] 1.009 (1.001-1.035) Urine Protein Negative (Negative) Urine Ketones Negative (Negative) Urine Blood Trace /uL (Negative) H Urine Nitrite Negative (Negative) Urine Bilirubin Negative (Negative) Urine Urobilinogen Normal mg/dL (Negative) Urine Leukocyte Esterase 3+ /uL (Negative) Urine RBC 3 /hpf (0 - 4) Urine WBC Clumps Present /hpf (None Seen) Urine Microscopic WBC 676 /HPF (0-5) H Urine Squamous Epithelial Cells Few /hpf (<5) Urine Bacteria Mod /hpf (None Seen) H Urine Hyaline Casts Few /lpf (0 - 2) Urine Glucose Normal mg/dL (Normal) Microbiology Microbiology Date/Time Source Procedure Growth Status 12/29/24 06:34 Voided Urine Urine Culture - Preliminary Resulted 12/29/24 02:53 Blood Blood Culture - Preliminary NO GROWTH AFTER 24 HOURS OF INCUBATION. Resulted Labs and/or images reviewed: Labs reviewed by me, Image(s) reviewed by me Assessment/Plan Assessment/Plan Septic shock with elevated white count altered mental status secondary to urinary tract infection Acute urinary tract infection: Blood cultures negative, urine cultures growing Gram-negative rods, continue Rocephin Acute Metabolic encephalopathy Hypotension secondary to sepsis Altered mental status Acute respiratory distress Generalized weakness Diabetes mellitus with hyperglycemia: Insulin sliding scale Hypertension Hypercholesterolemia History of recurrent urinary tract infections Severe protein calorie malnutrition Patient is hospice revoked Time Spent 70 minutes Advanced care planning time 20 minutes Patient is full code Plan discussed with: Patient My Orders Orders - MARIZOL RODRIGUEZ MD Procedure Category Date Status Time Urine Bacterial NABEEL 12/29/24 In Process Culture 14:28 Ceftriaxone 1gm/50ml PHA 12/30/24 In Process (Rocephin) 09:00 Date of Service: Dec 30, 2024 Billing Provider: MARIZOL RODRIGUEZ MD Common Visit Codes: [id number] CARE 30-74 MIN MARIZOL RODRIGUEZ MD Dec 30, 2024 13:16
[2024-12-30] MEDS: LORazepam 0.5 MG TAB PO ONE (15:56)
[2024-12-30] MEDS ORDERED: MORP1TAB14 PO (19:31)
[2024-12-30] MEDS ORDERED: LORA-1121 PO (19:31)
[2024-12-30] MEDS ORDERED: HYDR-3682 PO (19:31)
[2024-12-30] MEDS ORDERED: ROPI2TAB27 PO (19:31)
[2024-12-30] MEDS ORDERED: CELE100C82 PO (19:31)
[2024-12-30] MEDS ORDERED: TRAZ-228 PO (19:31)
[2024-12-30] MEDS ORDERED: LISI40TA16 PO (19:31)
[2024-12-30] MEDS ORDERED: DICY20TA PO (19:31)
[2024-12-30] MEDS ORDERED: HYDR-4798 PO (19:31)
[2024-12-30] MEDS ORDERED: BACL10TA PO (19:31)
[2024-12-30] MEDS ORDERED: CHOL20007 OR (19:31)
[2024-12-30] MEDS: LORazepam 0.5 MG TAB PO SCH (22:06)
[2024-12-31] VITALS (11 sets, daily range): BP systolic 139–197; BP diastolic 41–94; PULSE 49–92; RESP 16–20; TEMP 96.7–98.2; O2SAT 98–100
--- NOTE | 2024-12-31 13:04 | DVHPN2 ---
Reviewed: Care Plan, H&P, Labs, Medications, Previous Orders, Radiology Changes from previous H/P or p: No Changes Eyes: No Pain, No Vision change, No Conjunctivae inflammation, No Eyelid inflammation, No Other, No Redness ENT: No Ear pain, No Ear discharge, No Nose pain, No Nose discharge, No Nose congestion, No Mouth pain, No Mouth swelling, No Throat pain, No Throat swelling, No Other Cardiovascular: No Chest Pain, No Palpitations, No Orthopnea, No Paroxysmal Noc. Dyspnea, No Edema, No Lt Headedness, No Other Respiratory: No Cough, No Dry; Shortness of breath; No SOB with excertion, No Wheezing, No Hemoptysis, No Pleuritic Pain, No Sputum, No Other Gastrointestinal: No Nausea, No Vomiting, No Abdominal Pain, No Diarrhea, No Constipation, No Melena, No Hematochezia, No Other Genitourinary: No Dysuria, No Frequency, No Incontinence, No Hematuria, No Retention, No Other Musculoskeletal: No other, No neck pain, No shoulder pain, No arm pain, No back pain, No hand pain, No leg pain, No foot pain Skin: No Rash, No Lesions, No Jaundice, No Bruising, No Other Objective Vitals Vital Signs Date Time Temp Pulse Resp B/P (MAP) Pulse Ox O2 Delivery O2 Flow Rate FiO2 12/31/24 09:00 98.2 50 20 197/94 (128) 98 98.2 12/30/24 20:00 Nasal Cannula* 2 28 Intake/Output Intake and Output 12/31/24 07:00 Intake Total 850 ml Output Total 1132 ml Balance -282 ml Intake Oral 800 ml IV Total 50 ml Output Urine Total 1130 ml Stool Total 2 ml Medications Current Medications Medications Dose Ordered Sig/Robbin Route Start Time Stop Time Status Last Admin Dose Admin Duloxetine HCl 30 mg DAILY PO 12/29/24 10:00 12/31/24 09:19 30 MG Gabapentin 300 mg TID PO 12/29/24 06:00 12/31/24 05:42 300 MG Famotidine 20 mg DAILY IV 12/29/24 10:00 12/31/24 09:19 20 MG Atorvastatin Calcium 10 mg HS PO 12/29/24 22:00 12/30/24 22:06 10 MG Sodium Chloride 1,000 ml @ 60 mls/hr [id number] IV 12/29/24 04:30 12/31/24 06:30 60 MLS/HR Acetaminophen/ Hydrocodone Bitart 1 tab Q4HP PRN PO 12/29/24 04:30 12/31/24 09:50 1 TAB Ondansetron HCl 4 mg Q4HP PRN IV 12/29/24 04:30 Docusate Sodium 100 mg BIDPRN PRN PO 12/29/24 04:30 Acetaminophen 650 mg Q6HP PRN PO 12/29/24 04:30 Nitroglycerin 0.4 mg Q5MINP PRN SL 12/29/24 04:30 Morphine Sulfate 2 mg Q30M PRN IV 12/29/24 04:30 Diagnostic Test (Pha) 1 strip ACHS 12/29/24 07:00 12/31/24 07:03 1 STRIP Insulin Human Regular HS SC 12/29/24 22:00 12/30/24 22:09 3 UNITS Insulin Human Regular AC SC 12/29/24 07:00 12/31/24 07:07 2 UNITS Dextrose 50 ml UD PRN IV 12/29/24 05:00 Midodrine 10 mg TID@0600,1200,1800 PO 12/29/24 12:00 12/31/24 05:42 10 MG Aspirin 81 mg DAILY PO 12/29/24 10:00 12/29/24 08:36 81 MG Ceftriaxone Sodium 50 ml @ 100 mls/hr DAILY@09 IV 12/30/24 09:00 12/31/24 09:19 100 MLS/HR Lorazepam 1 mg TID PO 12/30/24 22:00 12/31/24 05:42 1 MG Laboratory Results Laboratory Tests 12/30/24 06:02 Urinalysis Test 12/29/24 06:34 Urine Color Yellow (Yellow) Urine Clarity Ex.turbid (Clear) Urine pH 5.5 (5.0-9.0) Urine Specific [place] 1.009 (1.001-1.035) Urine Protein Negative (Negative) Urine Ketones Negative (Negative) Urine Blood Trace /uL (Negative) H Urine Nitrite Negative (Negative) Urine Bilirubin Negative (Negative) Urine Urobilinogen Normal mg/dL (Negative) Urine Leukocyte Esterase 3+ /uL (Negative) Urine RBC 3 /hpf (0 - 4) Urine WBC Clumps Present /hpf (None Seen) Urine Microscopic WBC 676 /HPF (0-5) H Urine Squamous Epithelial Cells Few /hpf (<5) Urine Bacteria Mod /hpf (None Seen) H Urine Hyaline Casts Few /lpf (0 - 2) Urine Glucose Normal mg/dL (Normal) Microbiology Microbiology Date/Time Source Procedure Growth Status 12/29/24 06:34 Voided Urine Urine Culture - Preliminary Resulted 12/29/24 02:53 Blood Blood Culture - Preliminary NO GROWTH AFTER 48 HOURS OF INCUBATION. Resulted Labs and/or images reviewed: Labs reviewed by me, Image(s) reviewed by me Assessment/Plan Assessment/Plan Septic shock with elevated white count altered mental status secondary to urinary tract infection Acute urinary tract infection: Blood cultures negative, urine cultures growing Gram-negative rods, continue Rocephin Acute Metabolic encephalopathy Hypotension secondary to sepsis Altered mental status Acute respiratory distress Generalized weakness Diabetes mellitus with hyperglycemia: Insulin sliding scale Hypertension Hypercholesterolemia History of recurrent urinary tract infections Severe protein calorie malnutrition Patient is hospice revoked Time Spent 70 minutes Advanced care planning time 20 minutes Patient is full code Plan discussed with: Patient My Orders Orders - MARIZOL RODRIGUEZ MD Procedure Category Date Status Time Lorazepam Tablet PHA 12/30/24 In Process (Ativan Tablet) 22:00 Date of Service: Dec 31, 2024 Billing Provider: MARIZOL RODRIGUEZ MD Common Visit Codes: [id number] INP/OBS CARE(HIGH) MARIZOL RODRIGUEZ MD Dec 31, 2024 13:04
[2024-12-31] MEDS ORDERED: LOPERAMIDE 1 mg/7.5ml ORAL soln GT PRN (13:30)
[2024-12-31] MEDS: LOPERAMIDE HCL 2 MG CAP/TAB PO PRN (15:13)
[2025-01-01] VITALS (7 sets, daily range): BP systolic 131–169; BP diastolic 42–81; PULSE 51–68; RESP 15–22; TEMP 36.7; O2SAT 96–100
--- NOTE | 2025-01-01 11:27 | DVHPN2 ---
Reviewed: Care Plan, H&P, Labs, Medications, Previous Orders, Radiology Changes from previous H/P or p: No Changes Eyes: No Pain, No Vision change, No Conjunctivae inflammation, No Eyelid inflammation, No Other, No Redness ENT: No Ear pain, No Ear discharge, No Nose pain, No Nose discharge, No Nose congestion, No Mouth pain, No Mouth swelling, No Throat pain, No Throat swelling, No Other Cardiovascular: No Chest Pain, No Palpitations, No Orthopnea, No Paroxysmal Noc. Dyspnea, No Edema, No Lt Headedness, No Other Respiratory: Shortness of breath Gastrointestinal: No Nausea, No Vomiting, No Abdominal Pain, No Diarrhea, No Constipation, No Melena, No Hematochezia, No Other Genitourinary: No Dysuria, No Frequency, No Incontinence, No Hematuria, No Retention, No Other Musculoskeletal: No other, No neck pain, No shoulder pain, No arm pain, No back pain, No hand pain, No leg pain, No foot pain Skin: No Rash, No Lesions, No Jaundice, No Bruising, No Other Objective Vitals Vital Signs Date Time Temp Pulse Resp B/P (MAP) Pulse Ox O2 Delivery O2 Flow Rate FiO2 01/01/25 09:05 98.4 60 22 141/73 (95) 98 98.4 12/31/24 20:00 Nasal Cannula* 2 28 Intake/Output Intake and Output 01/01/25 07:00 Intake Total 2310 ml Output Total 1704 ml Balance 606 ml Intake Oral 1600 ml IV Total 710 ml Output Urine Total 1700 ml Stool Total 4 ml Medications Current Medications Medications Dose Ordered Sig/Robbin Route Start Time Stop Time Status Last Admin Dose Admin Duloxetine HCl 30 mg DAILY PO 12/29/24 10:00 01/01/25 09:26 30 MG Gabapentin 300 mg TID PO 12/29/24 06:00 01/01/25 06:55 300 MG Famotidine 20 mg DAILY IV 12/29/24 10:00 01/01/25 09:26 20 MG Atorvastatin Calcium 10 mg HS PO 12/29/24 22:00 12/31/24 21:44 10 MG Sodium Chloride 1,000 ml @ 60 mls/hr [id number] IV 12/29/24 04:30 01/01/25 07:01 60 MLS/HR Acetaminophen/ Hydrocodone Bitart 1 tab Q4HP PRN PO 12/29/24 04:30 01/01/25 07:43 1 TAB Ondansetron HCl 4 mg Q4HP PRN IV 12/29/24 04:30 Docusate Sodium 100 mg BIDPRN PRN PO 12/29/24 04:30 Acetaminophen 650 mg Q6HP PRN PO 12/29/24 04:30 Nitroglycerin 0.4 mg Q5MINP PRN SL 12/29/24 04:30 Morphine Sulfate 2 mg Q30M PRN IV 12/29/24 04:30 Diagnostic Test (Pha) 1 strip ACHS 12/29/24 07:00 01/01/25 07:00 1 STRIP Insulin Human Regular HS SC 12/29/24 22:00 12/30/24 22:09 3 UNITS Insulin Human Regular AC SC 12/29/24 07:00 12/31/24 19:12 2 UNITS Dextrose 50 ml UD PRN IV 12/29/24 05:00 Midodrine 10 mg TID@0600,1200,1800 PO 12/29/24 12:00 12/31/24 05:42 10 MG Aspirin 81 mg DAILY PO 12/29/24 10:00 12/29/24 08:36 81 MG Ceftriaxone Sodium 50 ml @ 100 mls/hr DAILY@09 IV 12/30/24 09:00 01/01/25 09:26 100 MLS/HR Lorazepam 1 mg TID PO 12/30/24 22:00 01/01/25 06:56 1 MG Clonidine HCl 0.2 mg Q6HP PRN PO 12/31/24 14:00 12/31/24 14:18 0.2 MG Loperamide HCl 2 mg Q4H PRN PO 12/31/24 14:15 01/01/25 09:26 2 MG Laboratory Results Laboratory Tests 12/30/24 06:02 Urinalysis Test 12/29/24 06:34 Urine Color Yellow (Yellow) Urine Clarity Ex.turbid (Clear) Urine pH 5.5 (5.0-9.0) Urine Specific [place] 1.009 (1.001-1.035) Urine Protein Negative (Negative) Urine Ketones Negative (Negative) Urine Blood Trace /uL (Negative) H Urine Nitrite Negative (Negative) Urine Bilirubin Negative (Negative) Urine Urobilinogen Normal mg/dL (Negative) Urine Leukocyte Esterase 3+ /uL (Negative) Urine RBC 3 /hpf (0 - 4) Urine WBC Clumps Present /hpf (None Seen) Urine Microscopic WBC 676 /HPF (0-5) H Urine Squamous Epithelial Cells Few /hpf (<5) Urine Bacteria Mod /hpf (None Seen) H Urine Hyaline Casts Few /lpf (0 - 2) Urine Glucose Normal mg/dL (Normal) Microbiology Microbiology Date/Time Source Procedure Growth Status 12/29/24 06:34 Voided Urine Urine Culture - Final Klebsiella pneumoniae Complete 12/29/24 02:53 Blood Blood Culture - Preliminary NO GROWTH AFTER 72 HOURS OF INCUBATION. Resulted Labs and/or images reviewed: Labs reviewed by me, Image(s) reviewed by me Assessment/Plan Assessment/Plan Septic shock with elevated white count altered mental status secondary to urinary tract infection Acute urinary tract infection: Blood cultures negative, urine cultures growing Klebsiella pneumoniae , continue Rocephin and Bactrim Acute Metabolic encephalopathy Hypotension secondary to sepsis Altered mental status Acute respiratory distress Generalized weakness Diabetes mellitus with hyperglycemia: Insulin sliding scale Hypertension Hypercholesterolemia History of recurrent urinary tract infections Severe protein calorie malnutrition Patient is hospice revoked Time Spent 60 minutes Advanced care planning time 20 minutes Patient is full code Family wants the patient to be discharged back on hospice Plan discussed with: Patient My Orders Orders - MARIZOL RODRIGUEZ MD Procedure Category Date Status Time Clonidine Hcl Tablet PHA 12/31/24 In Process (Catapres Tablet) 14:00 Loperamide Capsule PHA 12/31/24 In Process (Imodium Capsule) 14:15 Pt Request For Service PT 01/01/25 Logged 09:09 Date of Service: Jan 01, 2025 Billing Provider: MARIZOL RODRIGUEZ MD Common Visit Codes: [id number] INP/OBS CARE(HIGH) MARIZOL RODRIGUEZ MD Jan 01, 2025 11:27
[2025-01-01] MEDS ORDERED: BACDST PO (11:33)
--- NOTE | 2025-01-01 11:40 | DVHDS2 ---
Discharge Summary Date of Admission Dec 29, 2024 at 04:24 Date of Discharge: Jan 01, 2025 Admitting Diagnosis Altered mental status Wounds: None Labs/Diagnostic Data: Laboratory Results Test 01/01/25 07:02 12/30/24 06:02 12/29/24 06:34 12/29/24 05:49 POC Glucose 136 mg/dl (70-106) White Blood Count 9.0 10^3/uL (4.4-10.8) Red Blood Count 4.20 10^6/uL (4.0-5.20) Hemoglobin 12.1 g/dL (12.2-16.2) Hematocrit 35.4 % (36.0-46.0) Mean Corpuscular Volume 84.2 fL (80.0-100.0) Mean Corpuscular Hemoglobin 28.9 pg (28.0-32.0) Mean Corpuscular Hemoglobin Concent 34.3 g/dL (32.0-36.0) Red Cell Distribution Width 13.7 % (11.8-14.3) Platelet Count 245 10^3/uL (140-450) Mean Platelet Volume 7.9 fL (6.9-10.8) Neutrophils (%) (Auto) 72.9 % (37.0-80.0) Lymphocytes (%) (Auto) 22.1 % (10.0-50.0) Monocytes (%) (Auto) 4.1 % (0.0-12.0) Eosinophils (%) (Auto) 0.8 % (0.0-7.0) Basophils (%) (Auto) 0.1 % (0.0-2.0) Neutrophils # (Auto) 6.6 10 ^3/uL (1.6-8.6) Lymphocytes # (Auto) 2.0 10 ^3/uL (0.4-5.4) Monocytes # (Auto) 0.4 10 ^3/uL (0-1.3) Eosinophils # (Auto) 0.1 10 ^3/uL (0-0.8) Basophils # (Auto) 0 10 ^3/uL (0-0.2) Nucleated Red Blood Cells 0.0 % Sodium Level 140 mmol/L (136-145) Potassium Level 3.9 mmol/L (3.5-5.1) Chloride Level 107 mmol/L (98-107) Carbon Dioxide Level 23 mmol/L (20-31) Anion Gap 10 (5-15) Blood Urea Nitrogen 12 mg/dL (9-23) Creatinine 0.71 mg/dL (0.550-1.02) Glomerular Filtration Rate Calc 91 mL/min (>90) BUN/Creatinine Ratio 16.9 (10.0-20.0) Serum Glucose 147 mg/dL (74-106) Calcium Level 9.2 mg/dL (8.7-10.4) Total Bilirubin 0.5 mg/dL (0.2-1.0) Aspartate Amino Transferase (AST) 29 U/L (13-40) Alanine Aminotransferase (ALT) 23 U/L (7-40) Alkaline Phosphatase 140 U/L (46-116) Total Protein 7.2 g/dL (5.7-8.2) Albumin 4.1 g/dL (3.2-4.8) Urine Color Yellow (Yellow) Urine Clarity Ex.turbid (Clear) Urine pH 5.5 (5.0-9.0) Urine Specific Lavinia 1.009 (1.001-1.035) Urine Protein Negative (Negative) Urine Ketones Negative (Negative) Urine Blood Trace /uL (Negative) Urine Nitrite Negative (Negative) Urine Bilirubin Negative (Negative) Urine Urobilinogen Normal mg/dL (Negative) Urine Leukocyte Esterase 3+ /uL (Negative) Urine RBC 3 /hpf (0 - 4) Urine WBC Clumps Present /hpf (None Seen) Urine Microscopic WBC 676 /HPF (0-5) Urine Squamous Epithelial Cells Few /hpf (<5) Urine Bacteria Mod /hpf (None Seen) Urine Hyaline Casts Few /lpf (0 - 2) Urine Glucose Normal mg/dL (Normal) Troponin I High Sensitivity < 3 ng/L (</=34) Test 12/29/24 02:44 Prothrombin Time 10.5 sec (9.3-11.8) Prothrombin Time INR 0.99 (0.9-1.15) Activated Partial Thromboplast Time 22.2 SEC (24.5-34.5) Lactic Acid Level 1.4 mmol/L (0.4-2.0) Magnesium Level 2.1 mg/dL (1.6-2.6) B-Type Natriuretic Peptide 4.10 pg/mL (0-100) Other Laboratory Tests 12/30/24 06:02 Brief Hx & Hospital Course: 79-year-old female with a history of diabetes hypertension hypercholesterolemia recurrent urinary tract infections on hospice burden by family for altered mental status and confusion found to be in septic shock secondary to acute urinary tract infection treated with the Rocephin blood cultures negative urine cultures growing Klebsiella pneumoniae sensitive to Rocephin and Bactrim. Patient feels better being discharged home the family wants the patient back on hospice. Prescription for Bactrim DS transmitted to pharmacy Consults/Reason for consult None Operations or Procedures None Condition at Discharge: Fair Final Diagnosis/Problems List Septic shock with elevated white count altered mental status secondary to urinary tract infection Acute urinary tract infection: Blood cultures negative, urine cultures growing Klebsiella pneumoniae , continue Rocephin and Bactrim Acute Metabolic encephalopathy Hypotension secondary to sepsis Altered mental status Acute respiratory distress Generalized weakness Diabetes mellitus with hyperglycemia: Insulin sliding scale Hypertension Hypercholesterolemia History of recurrent urinary tract infections Severe protein calorie malnutrition Discharge Disposition: Hospice - Home Discharge Instruct/Medications Diet: Regular Activity: Light activity Follow Up/Referral: Follow up with the hospice Dr Medications: Bactrim-DS Transmitted to pharmacy Scheduled Amitriptyline Hcl (Elavil), 75 MG PO BID, (Reported) Baclofen (Baclofen), 10 MG PO TID, (Reported) Bupropion Hcl (Wellbutrin Tablet), 100 MG PO DAILY, (Reported) Celecoxib (Celebrex), 200 MG PO DAILY, (Reported) Cholecalciferol (Vitamin D3), 5,000 UNIT OR QWEEKLY, (Reported) Dicyclomine Hcl (Dicyclomine Hcl), 20 MG PO TID, (Reported) Duloxetine Hcl (Cymbalta Capsule), 60 MG PO DAILY, (Reported) Erythromycin (Erythromycin Base), 500 MG PO TID, (Reported) Gabapentin (Gabapentin), 300 MG PO TID, (Reported) Hydrocodone-Acetaminophen (Hydrocodone Bitartrate/AC 10-325 mg), 1 TAB PO TID, (Reported) Hydroxyzine Hcl (Hydroxyzine Hcl), 1 TAB PO BID, (Reported) Lisinopril (Zestril Tablet), 10 MG PO DAILY, (Reported) Lisinopril (Lisinopril), 40 MG PO DAILY, (Reported) Loratadine (Claritin Tablet), 10 MG PO DAILY, (Reported) Lorazepam (Ativan Tablet), 1 TAB PO QID, (Reported) Morphine Sulfate (Morphine Sulfate Er), 1 TAB PO BID, (Reported) Omeprazole (Prilosec), 20 MG PO DAILY, (Reported) Propranolol Hcl (Inderal La), 80 MG PO DAILY, (Reported) Ropinirole Hydrochloride (Ropinirole Hcl), 2 MG PO DAILY, (Reported) Simvastatin (Simvastatin), 1 TAB PO QPM, (Reported) Sulfamethoxazole W/Trimethopri (Bactrim Ds Tablet), 1 TAB PO BID Trazodone Hcl (Trazodone Hcl), 100 MG PO HS, (Reported) 39 (Time taken for discharge summary 39 mts) Discharge Statement: "Patient was advised to return to the ER or call 911 if any headaches, dizziness, shortness of breath, chest pain, abdominal pain, bleeding, fevers, or worsening of medical condition. Patient was counseled about treatment plan, medications, possible side effects, patientverbalized understanding. All questions were answered to the best of my ability. This discharge took greater then 30 minutes in planning, reviewing documentation, counseling the patient, and discussing with other team members." ASSESSMENT ASSESSMENT Hospital Course Improved Assessment Septic shock with elevated white count altered mental status secondary to urinary tract infection Acute urinary tract infection: Blood cultures negative, urine cultures growing Klebsiella pneumoniae , continue Rocephin and Bactrim Acute Metabolic encephalopathy Hypotension secondary to sepsis Altered mental status Acute respiratory distress Generalized weakness Diabetes mellitus with hyperglycemia: Insulin sliding scale Hypertension Hypercholesterolemia History of recurrent urinary tract infections Severe protein calorie malnutrition Date of Service: Jan 01, 2025 Billing Provider: MARIZOL RODRIGUEZ MD Common Visit Codes: 83692-CPD/OBS DISCH DAY >30min MARIZOL RODRIGUEZ MD Jan 01, 2025 11:40
== END 2025-01-01 17:08 | disposition hospice, home (50) | DRG 871 ==
LOC: ER 01:31 → OVERFLOW 04:24 → TELE-WESTW 22:38
PROVIDERS: ADMIT Family Medicine; ATTEND Family Medicine
DX: A41.9 Sepsis, unspecified organism (principal); E43 Unspecified severe protein-calorie malnutrition; G93.41 Metabolic encephalopathy; R65.21 Severe sepsis with septic shock; J15.0 Pneumonia due to Klebsiella pneumoniae; N39.0 Urinary tract infection, site not specified; E11.65 Type 2 diabetes mellitus with hyperglycemia; E78.00 Pure hypercholesterolemia, unspecified; B96.1 Klebsiella pneumoniae [K. pneumoniae] as the cause of diseases classified elsewhere; F17.200 Nicotine dependence, unspecified, uncomplicated; Z68.25 Body mass index [BMI] 25.0-25.9, adult; I10 Essential (primary) hypertension; Z51.5 Encounter for palliative care; Z87.440 Personal history of urinary (tract) infections; Z88.0 Allergy status to penicillin; Z88.1 Allergy status to other antibiotic agents
CPT/HCPCS: 36415; 71045; 80053; 81001; 82962; 83605; 83735; 83880; 84484; 85025; 85610; 85730; 86850; 86900; 86901; 87040; 87086; 87088; 87186; 96360; 99291; G0378; J1815; J2543; J3490